=== PATIENT | male | born 1965 | race Caucasian/White ===

== ENCOUNTER → 2022-06-21 14:59 | Outpatient (BNVA) | payer BC, SELFPAY | PROVIDERS: Visit Provider Podiatrist Foot & Ankle Surgery | DX: M72.2 Plantar fascial fibromatosis (principal); M24.571 Contracture, right ankle; M24.572 Contracture, left ankle | CPT/HCPCS: 73630 ==

== ENCOUNTER 2022-08-09 11:02 | Outpatient (CLI) | payer BC, SELFPAY | END 2022-08-09 11:03 | disposition home or self-care (01) | LOC: SPT 11:03 | PROVIDERS: Visit Provider Podiatrist Foot & Ankle Surgery | DX: Z46.89 Encounter for fitting and adjustment of other specified devices (principal); M72.2 Plantar fascial fibromatosis; M79.671 Pain in right foot | CPT/HCPCS: 97760; L4397 ==

== ENCOUNTER → 2022-08-25 14:44 | Outpatient (BNVA) | payer BC, SELFPAY | PROVIDERS: Referring Provider Podiatrist Foot & Ankle Surgery; Visit Provider Internal Medicine | DX: E11.9 Type 2 diabetes mellitus without complications (principal); Z13.220 Encounter for screening for lipoid disorders | CPT/HCPCS: 36415; 80053; 80061; 82044; 82306; 83036; 84443; 85025 ==

== ENCOUNTER 2023-12-12 06:45 | Outpatient (CLI) | payer BC, SELFPAY ==
--- NOTE | 2023-12-12 | ECG_ITS ---
[facility] Test Date: 2023-12-12 Pat Name: Demetris Ramirez Department: Room: Gender: Male [place] Drawer: : 1965 Requested By: Lizandro Santos Order Number: [id number] Meyers MD: Phillip Live M.D. Interpretive Statements NAME OF STUDY: EXERCISE SESTAMIBI STRESS TEST INDICATION: [AFIB, ] EXERCISE DATA: The patient was exercised by [facility]ezar protocol. Baseline heart rate was 73 beats per minute. Baseline blood pressure was 143/84 millimeters of mercury. Maximal predicted heart rate was 162 beats per minute. Maximum heart rate achieved was 160, which was 98% of the maximum predicted heart rate. Maximum blood pressure was 188/78 millimeters of mercury. Total exercise time was 5 minutes 30 seconds.. Maximum METs achieved was 7. The reason for ending the test was completion of protocol.. The patient complained of shortness of breath during the stress test, which then resolved at the end of the test. ELECTROCARDIOGRAM: BASELINE: Showed atrial fibrillation, normal axis, T wave inversions in inferior leads. EXERCISE: At the peak exercise level, [] No significant ST-T changes suggestive of ischemia noted. Atrial fibrillation with RVR. [] RECOVERY: During the recovery period, heart rate dropped appropriately. No significant ST-T changes in the recovery suggestive of ischemia noted. [] CONCLUSION: 1. Exercise capacity is fair 2. Heart rate response was appropriate 3. Blood pressure response was appropriate 4. Symptoms not suggestive of ischemia. 5. Electrocardiogram portion of the stress test was not suggestive of ischemia. 6. Nuclear scan will be documented separately. Electronically Signed On 12-22-2023 12:18:30 CDT by Phillip Live M.D. [id number]
--- NOTE | 2023-12-12 06:54 | NMCV_ITS ---
NM maryam perf SPECT r/s* [id number] Demetris Ramirez Age: 58 Gender: M : 1965 Exam Date: 12/12/2023 08:09 Ordering Phys: Lizandro Jones MD Technologist: SOLITARIO Hall Exam Location: [facility] Indications: AFIB STRESS TEST Please see separate stress test report in [facility] for full findings IMAGE PROTOCOL Rest/Stress 1 Exercise Day Radiopharmaceutical Dose (mCi) Administration Site Administered by Rest: Tc-99m 10.6 IV SOLITARIO Campbell Sestamibi Stress:Tc-99m 32.9 IV SOLITARIO Campbell Sestamibi Rest: 12-Dec-2023 60 Discovery 630 Stress: 12-Dec-2023 15 Discovery 630 Radiopharmaceutical was injected at 92 % maximum heart rate. Images obtained in supine and prone position. SPECT RESULTS Technical Quality: Excellent Raw Data Analysis: Normal Image Corrections: No attenuation or motion correction applied Summed Stress Score: 6 Summed Rest Score: 0 Summed Difference Score: 6 PERFUSION FINDINGS Small to medium sized area of reversible perfusion defect is seen in inferior wall. This is consistent with small to medium sized area of ischemia in the RCA territory. Attenuation artifact can not be ruled out. Medium sized area of reversible perfusion defect is seen in the apical and apical lateral wall. This is consistent with medium sized area of ischemia in LAD territory. FUNCTIONAL RESULTS (calculated via Gated SPECT) Stress Image LV EF (%): 64 Stress EDV (mL):146 TID: 0.96 Stress ESV (mL):53 FUNCTIONAL FINDINGS: There is normal left ventricular systolic function. IMPRESSIONS 1. Abnormal myocardial perfusion imaging with small to medium sized area of ischemia in the RCA territory. Attenuation artifact can not be ruled out. 2. Medium sized area of ischemia is seen in the LAD territory. 3. LV systolic function is normal Phillip Live MD (Electronically Signed) Final Date: 13 December 2023 12:10 S
[2023-12-12 07:08] VITALS: BMI 40.2
[2023-12-12 09:46] VITALS: BP 169/90; PULSE 85
== END 2023-12-12 06:46 | disposition home or self-care (01) ==
PROVIDERS: PCP Family Medicine; Visit Provider Family Medicine
DX: I48.91 Unspecified atrial fibrillation (principal)
CPT/HCPCS: 36415; 78452; 93017; 96374; A9500

== ENCOUNTER → 2025-08-21 10:42 | Outpatient (BNVA) | payer BC, SELFPAY | PROVIDERS: PCP Family Medicine; Visit Provider Podiatrist Foot & Ankle Surgery | DX: B35.1 Tinea unguium (principal) | CPT/HCPCS: 36415; 80053 ==